=== PATIENT | male | born 1970 ===

== ENCOUNTER 2018-09-26 22:30 | Observation (INO) | payer SELFPAY ==
[2018-09-26] MEDS ORDERED: Aspirin 81 MG Tab.Chew PO ONE (22:32)
[2018-09-26] MEDS ORDERED: Sodium Chloride 0.9% 1,000 ML IV ONE (22:32)
[2018-09-26] MEDS: Nitroglycerin 0.4 MG Tab.SL SL PRN ×3 (22:43→23:06)
[2018-09-26 23:22] LABS: CHLORIDE,CL 103 mmol/L (98-107); SODIUM,NA 141 mmol/L (136-148)
--- NOTE | 2018-09-26 23:31 | EDM.PDOC ---
ED HPI GENERAL MEDICAL PROBLEM - General Chief Complaint: Chest Pain Stated Complaint: PT HAS CHEST PAINS Time Seen by Provider: 09/26/18 23:31 Source of Information: Reports: Patient - History of Present Illness INITIAL COMMENTS - FREE TEXT/NARRATIVE: HISTORY AND PHYSICAL: History of present illness: []Patient with coronary artery bypass 2 years prior presents with chest pain 6 out of 10 nonradiating persistent for couple of hours blood pressure is quite elevated on arrival, Tatian did receive nitroglycerin and aspirin pain improved with nitroglycerin Fever nausea vomiting diarrhea constipation chest pain shortness breath headache dizziness palpitation no bowel or urine symptoms at current Review of systems: As per history of present illness and below otherwise all systems reviewed and negative. Past medical history: As per history of present illness and as reviewed below otherwise noncontributory. Surgical history: As per history of present illness and as reviewed below otherwise noncontributory. Social history: No reported history of drug or alcohol abuse. Family history: As per history of present illness and as reviewed below otherwise noncontributory. Physical exam: HEENT: Atraumatic, normocephalic, pupils reactive, negative for conjunctival pallor or scleral icterus, mucous membranes moist, throat clear, neck supple, nontender, trachea midline. Lungs: Clear to auscultation, breath sounds equal bilaterally, chest nontender. Heart: S1S2, regular, negative for clicks, rubs, or JVD. Abdomen: Soft, nondistended, nontender. Negative for masses or hepatosplenomegaly. Negative for costovertebral tenderness. Pelvis: Stable nontender. Genitourinary: Deferred. Rectal: Deferred. Extremities: Atraumatic, negative for cords or calf pain. Neurovascular unremarkable. Neuro: Awake, alert, oriented. Cranial nerves II through XII unremarkable. Cerebellum unremarkable. Motor and sensory unremarkable throughout. Exam nonfocal. Diagnostics: [CBC CMP cardiac enzymes EKG Chest 1 view ] Therapeutics: [] will saline Aspirin Nitroglycerin 0.4 sublingual 3 Impression: [] acute coronary syndrome Hypertensive emergency Chronic history of baseline Definitive disposition and diagnosis as appropriate pending reevaluation and review of above. Left Chest Pain Score (Numeric/FACES): 1 - Related Data Allergies Allergy/AdvReac Type Severity Reaction Status Date / Time No Known Allergies Allergy Verified 04/03/16 11:44 Home Meds: Home Meds Aspirin 81 mg PO BRK 04/03/16 [History] Levothyroxine 112 mcg PO ACBREAKFAST 04/03/16 [History] Metoprolol Tartrate 12.5 mg PO BID 04/03/16 [History] Pantoprazole [Protonix] 40 mg PO BEDTIME 04/03/16 [History] Past Medical History HEENT History: Reports: None Cardiovascular History: Reports: High Cholesterol Respiratory History: Reports: None Genitourinary History: Reports: None Musculoskeletal History: Reports: None Neurological History: Reports: None Psychiatric History: Reports: None Endocrine/Metabolic History: Reports: Hypoparathyroidism Hematologic History: Reports: None Immunologic History: Reports: None Oncologic (Cancer) History: Reports: None Dermatologic History: Reports: None - Infectious Disease History Infectious Disease History: Reports: None - Past Surgical History Head Surgeries/Procedures: Reports: None Cardiovascular Surgical History: Reports: Coronary Artery Bypass Other Cardiovascular Surgeries/Procedures: 2016 GI Surgical History: Reports: Cholecystectomy Social & Family History - Tobacco Use Smoking Status *Q: Former Smoker Used Tobacco, but Quit: Yes Month/Year Tobacco Last Used: 09/23/2014 - Caffeine Use Caffeine Use: Reports: Coffee - Recreational Drug Use Recreational Drug Use: No ED ROS GENERAL - Review of Systems Review Of Systems: See Below ED EXAM, GENERAL - Physical Exam Exam: See Below Course - Vital Signs Last Recorded V/S: Last Vital Signs Temp 97.6 F 09/26/18 22:40 Pulse 92 09/26/18 23:25 Resp 18 09/26/18 23:25 BP 149/99 H 09/26/18 23:25 Pulse Ox 97 09/26/18 23:25 - Orders/Labs/Meds Orders: Active Orders 24 hr Category Date Time Status EKG Documentation Completion [RC] STAT Care 09/26/18 22:32 Active Chest 1V Frontal [CR] Stat Exams 09/26/18 22:32 Taken UA RFX DEMETRIO AND CULT IF INDIC [URIN] Stat Lab 09/26/18 22:32 Ordered Labs: Laboratory Tests 09/26/18 09/26/18 Range/Units 22:46 22:46 WBC 13.50 H (4.0-11.0) K/uL RBC 5.68 (4.50-5.90) M/uL Hgb 17.6 H (13.0-17.0) g/dL Hct 50.0 (38.0-50.0) % MCV 88.0 (80.0-98.0) fL MCH 31.0 (27.0-32.0) pg MCHC 35.2 (31.0-37.0) g/dL RDW Std Deviation 44.3 (28.0-62.0) fl RDW Coeff of Renea 14 (11.0-15.0) % Plt Count 296 (150-400) K/uL MPV 11.70 (7.40-12.00) fL Neut % (Auto) 46.7 L (48.0-80.0) % Lymph % (Auto) 36.4 (16.0-40.0) % [place] % (Auto) 8.7 (0.0-15.0) % Eos % (Auto) 7.7 H (0.0-7.0) % Baso % (Auto) 0.5 (0.0-1.5) % Neut # (Auto) 6.3 H (1.4-5.7) K/uL Lymph # (Auto) 4.9 H (0.6-2.4) K/uL [place] # (Auto) 1.2 H (0.0-0.8) K/uL Eos # (Auto) 1.0 H (0.0-0.7) K/uL Baso # (Auto) 0.1 (0.0-0.1) K/uL Nucleated RBC % 0.0 /100WBC Nucleated RBCs # 0 K/uL Sodium 141 (136-148) mmol/L Potassium 3.9 (3.5-5.1) mmol/L Chloride 103 (98-107) mmol/L Carbon Dioxide 26.2 (21.0-32.0) mmol/L BUN 19 H (7.0-18.0) mg/dL Creatinine 0.9 (0.8-1.3) mg/dL Est Cr Clr Drug Dosing 109.23 mL/min Estimated GFR (MDRD) > 60.0 ml/min Glucose 142 H (74-106) mg/dL Calcium 10.2 H (8.5-10.1) mg/dL Total Bilirubin 0.6 (0.2-1.0) mg/dL AST 21 (15-37) IU/L ALT 60 (14-63) IU/L Alkaline Phosphatase 104 (46-116) U/L Troponin I < 0.050 (0.000-0.056) ng/mL Total Protein 8.7 H (6.4-8.2) g/dL Albumin 4.4 (3.4-5.0) g/dL Globulin 4.3 H (2.6-4.0) g/dL Albumin/Globulin Ratio 1.0 (0.9-1.6) Lipase 103 (73-393) U/L Meds: Medications Discontinued Medications Generic Name Dose Route Start Last Admin Trade Name Freq PRN Reason Stop Dose Admin Aspirin 324 mg 09/26/18 22:32 09/26/18 22:46 Aspirin PO 09/26/18 22:33 324 mg ONETIME ONE Administration Sodium Chloride 1,000 mls @ 999 mls/hr 09/26/18 22:32 09/26/18 22:43 Normal Saline IV 09/26/18 23:32 999 mls/hr STAT ONE Administration Nitroglycerin 0.4 mg 09/26/18 22:32 09/26/18 23:06 Nitrostat SL 0.4 mg Q5M PRN Administration Chest Pain Departure - Departure Time of Disposition: 23:45 Disposition: Home, Self-Care 01 Condition: Good Clinical Impression: Acute coronary syndrome - Discharge Information Referrals: PCP,None [Primary Care Provider] - Forms: ED Department Discharge - My Orders Last 24 Hours: My Active Orders 09/26/18 22:32 EKG Documentation Completion [RC] STAT Chest 1V Frontal [CR] Stat UA RFX DEMETRIO AND CULT IF INDIC [URIN] Stat - Assessment/Plan Last 24 Hours: My Active Orders 09/26/18 22:32 EKG Documentation Completion [RC] STAT Chest 1V Frontal [CR] Stat UA RFX DEMETRIO AND CULT IF INDIC [URIN] Stat
[2018-09-27] MEDS ORDERED: Sodium Chloride 0.9% 2.5 ML Syringe FLUSH PRN (00:53)
[2018-09-27] MEDS ORDERED: oxyCODONE 5 MG Tab PO PRN (00:53)
[2018-09-27] MEDS ORDERED: Acetaminophen 325 MG Tab PO PRN (00:53)
[2018-09-27] MEDS ORDERED: Sodium Chloride 0.9% 10 ML Syringe FLUSH PRN (00:53)
[2018-09-27] MEDS ORDERED: Nitroglycerin 2% Oint 1 GM UD Packet TOP PRN (00:53)
[2018-09-27 05:46] LABS: CHLORIDE,CL 106 mmol/L (98-107); SODIUM,NA 143 mmol/L (136-148)
--- NOTE | 2018-09-27 07:52 | PCM.HP ---
H&P History of Present Illness - General Date of Service: 09/27/18 Admit Problem/Dx: Admission Diagnosis/Problem Admission Diagnosis/Problem Acute coronary syndrome Source of Information: Patient History Limitations: Reports: No Limitations - History of Present Illness Initial Comments - Free Text/Narative: The patient is a 48-year-old gentleman who presented yesterday to the emergency room with chest pain that started about 11 p.m. The patient has described the pain as sharp, pressure, stabbing and located in the left sternal area. The patient says that the pain does not radiate. Patient says that the pain started spontaneously while he was resting. It was relieved by nitroglycerin. The patient has a history of bypass graft 2 years ago. The patient had a chest x- ray through the emergency department which showed odd configuration of his mediastinum. The patient also says that he has a history of lymphoma. The patient had no other associated symptoms such as dizziness or lightheadedness. No nausea or vomiting. No diaphoresis. Also, patient says that the pain is not similar to his previous episode. Onset of Symptoms: Reports: Sudden Duration of Symptoms: Reports: Hour(s): Location: Reports: Chest. Denies: Radiates to Quality: Reports: Pressure, Stabbing Severity: Moderate Improves with: Reports: Medication, Rest Worsens with: Reports: None Associated Symptoms: Reports: No Other Symptoms Left Chest Pain Score (Numeric/FACES): 1 - Related Data Allergies/Adverse Reactions: Allergies Allergy/AdvReac Type Severity Reaction Status Date / Time No Known Allergies Allergy Verified 04/03/16 11:44 Home Medications: Home Meds Aspirin 81 mg PO BRK 04/03/16 [History] Levothyroxine 112 mcg PO ACBREAKFAST 04/03/16 [History] Metoprolol Tartrate 12.5 mg PO BID 04/03/16 [History] Pantoprazole [Protonix] 40 mg PO BEDTIME 04/03/16 [History] Past Medical History HEENT History: Reports: None Cardiovascular History: Reports: CAD, High Cholesterol, SD, Other (See Below) ( Bypass) Respiratory History: Reports: None Gastrointestinal History: Reports: None Genitourinary History: Reports: None Musculoskeletal History: Reports: None Neurological History: Reports: None Psychiatric History: Reports: None Endocrine/Metabolic History: Reports: Hypothyroidism Hematologic History: Reports: None Immunologic History: Reports: None Oncologic (Cancer) History: Reports: Hodgkin's Lymphoma Dermatologic History: Reports: None - Infectious Disease History Infectious Disease History: Reports: None - Past Surgical History Head Surgeries/Procedures: Reports: None Cardiovascular Surgical History: Reports: Coronary Artery Bypass Other Cardiovascular Surgeries/Procedures: 2014 GI Surgical History: Reports: Cholecystectomy Other GI Surgeries/Procedures: done in [place] 2012 or 2013 Social & Family History - Family History Family Medical History: Noncontributory - Tobacco Use Smoking Status *Q: Former Smoker Years of Tobacco use: 3 Packs/Tins Daily: 1 Used Tobacco, but Quit: Yes Month/Year Tobacco Last Used: 2013 Second Hand Smoke Exposure: No - Caffeine Use Caffeine Use: Reports: Coffee - Recreational Drug Use Recreational Drug Use: No - Living Situation & Occupation Living situation: Reports: , Alone Occupation: Employed H&P Review of Systems - Review of Systems: Review Of Systems: See Below General: Reports: No Symptoms HEENT: Reports: No Symptoms Pulmonary: Reports: No Symptoms Cardiovascular: Reports: Chest Pain Gastrointestinal: Reports: No Symptoms Genitourinary: Reports: No Symptoms Musculoskeletal: Reports: No Symptoms Skin: Reports: No Symptoms Psychiatric: Reports: No Symptoms Neurological: Reports: No Symptoms Hematologic/Lymphatic: Reports: No Symptoms Immunologic: Reports: No Symptoms Exam - Exam Exam: See Below - Vital Signs Vital Signs: Last Vital Signs Temp 36.5 C 09/27/18 05:00 Pulse 93 09/27/18 05:00 Resp 18 09/27/18 05:00 BP 135/87 09/27/18 05:00 Pulse Ox 96 09/27/18 05:00 Weight: 110.314 kg - Exam Quality Assessment: No: Supplemental Oxygen General: Alert, Oriented, Cooperative HEENT: Conjunctiva Clear, EACs Clear, EOMI, Mucosa Moist & [place], Nares Patent, PERRLA Neck: Supple, Trachea Midline, Thyromegaly Lungs: Clear to Auscultation, Normal Respiratory Effort Cardiovascular: Regular Rate, Regular Rhythm GI/Abdominal Exam: Normal Bowel Sounds, Soft, Non-Tender, No Distention (Male) Exam: Deferred Rectal (Males) Exam: Deferred Back Exam: Normal Inspection, Full Range of Motion Extremities: Normal Inspection, Normal Range of Motion, No Pedal Edema Skin: Warm, Dry, Intact Neurological: Cranial Nerves Intact Neuro Extensive - Mental Status: Alert, Oriented x3 Psychiatric: Alert, Normal Affect, Normal Mood - Patient Data Lab Results Last 24 hrs: Laboratory Results - last 24 hr 09/26/18 09/26/18 09/26/18 Range/Units 22:46 22:46 23:50 WBC 13.50 H (4.0-11.0) K/uL RBC 5.68 (4.50-5.90) M/uL Hgb 17.6 H (13.0-17.0) g/dL Hct 50.0 (38.0-50.0) % MCV 88.0 (80.0-98.0) fL MCH 31.0 (27.0-32.0) pg MCHC 35.2 (31.0-37.0) g/dL RDW Std Deviation 44.3 (28.0-62.0) fl RDW Coeff of Renea 14 (11.0-15.0) % Plt Count 296 (150-400) K/uL MPV 11.70 (7.40-12.00) fL Neut % (Auto) 46.7 L (48.0-80.0) % Lymph % (Auto) 36.4 (16.0-40.0) % [place] % (Auto) 8.7 (0.0-15.0) % Eos % (Auto) 7.7 H (0.0-7.0) % Baso % (Auto) 0.5 (0.0-1.5) % Neut # (Auto) 6.3 H (1.4-5.7) K/uL Lymph # (Auto) 4.9 H (0.6-2.4) K/uL [place] # (Auto) 1.2 H (0.0-0.8) K/uL Eos # (Auto) 1.0 H (0.0-0.7) K/uL Baso # (Auto) 0.1 (0.0-0.1) K/uL Nucleated RBC % 0.0 /100WBC Nucleated RBCs # 0 K/uL Sodium 141 (136-148) mmol/L Potassium 3.9 (3.5-5.1) mmol/L Chloride 103 (98-107) mmol/L Carbon Dioxide 26.2 (21.0-32.0) mmol/L BUN 19 H (7.0-18.0) mg/dL Creatinine 0.9 (0.8-1.3) mg/dL Est Cr Clr Drug Dosing 109.23 mL/min Estimated GFR (MDRD) > 60.0 ml/min Glucose 142 H (74-106) mg/dL Calcium 10.2 H (8.5-10.1) mg/dL Total Bilirubin 0.6 (0.2-1.0) mg/dL AST 21 (15-37) IU/L ALT 60 (14-63) IU/L Alkaline Phosphatase 104 (46-116) U/L Troponin I < 0.050 (0.000-0.056) ng/mL Total Protein 8.7 H (6.4-8.2) g/dL Albumin 4.4 (3.4-5.0) g/dL Globulin 4.3 H (2.6-4.0) g/dL Albumin/Globulin Ratio 1.0 (0.9-1.6) Triglycerides (0-200) mg/dL Cholesterol (50-200) mg/dL LDL Cholesterol, Calc (60-180) mg/dL VLDL Cholesterol (5-55) mg/dL HDL Cholesterol (40-60) mg/dL Cholesterol/HDL Ratio (3.3-6.0) Lipase 103 (73-393) U/L Urine Color YELLOW Urine Appearance CLEAR Urine pH 7.0 (5.0-8.0) Ur Specific Range 1.020 (1.001-1.035) Urine Protein NEGATIVE (NEGATIVE) mg/dL Urine Glucose (UA) NEGATIVE (NEGATIVE) mg/dL Urine Ketones NEGATIVE (NEGATIVE) mg/dL Urine Occult Blood NEGATIVE (NEGATIVE) Urine Nitrite NEGATIVE (NEGATIVE) Urine Bilirubin NEGATIVE (NEGATIVE) Urine Urobilinogen 0.2 (<2.0) EU/dL Ur Leukocyte Esterase NEGATIVE (NEGATIVE) 09/27/18 09/27/18 09/27/18 Range/Units 05:23 05:23 05:23 WBC 11.88 H (4.0-11.0) K/uL RBC 5.15 (4.50-5.90) M/uL Hgb 15.9 (13.0-17.0) g/dL Hct 45.7 (38.0-50.0) % MCV 88.7 (80.0-98.0) fL MCH 30.9 (27.0-32.0) pg MCHC 34.8 (31.0-37.0) g/dL RDW Std Deviation 44.6 (28.0-62.0) fl RDW Coeff of Renea 14 (11.0-15.0) % Plt Count 258 (150-400) K/uL MPV 10.50 (7.40-12.00) fL Neut % (Auto) 56.7 (48.0-80.0) % Lymph % (Auto) 30.4 (16.0-40.0) % [place] % (Auto) 7.6 (0.0-15.0) % Eos % (Auto) 5.0 (0.0-7.0) % Baso % (Auto) 0.3 (0.0-1.5) % Neut # (Auto) 6.7 H (1.4-5.7) K/uL Lymph # (Auto) 3.6 H (0.6-2.4) K/uL [place] # (Auto) 0.9 H (0.0-0.8) K/uL Eos # (Auto) 0.6 (0.0-0.7) K/uL Baso # (Auto) 0.0 (0.0-0.1) K/uL Nucleated RBC % 0.0 /100WBC Nucleated RBCs # 0 K/uL Sodium 143 (136-148) mmol/L Potassium 4.3 (3.5-5.1) mmol/L Chloride 106 (98-107) mmol/L Carbon Dioxide 27.5 (21.0-32.0) mmol/L BUN 19 H (7.0-18.0) mg/dL Creatinine 1.0 (0.8-1.3) mg/dL Est Cr Clr Drug Dosing 98.31 mL/min Estimated GFR (MDRD) > 60.0 ml/min Glucose 140 H (74-106) mg/dL Calcium 9.5 (8.5-10.1) mg/dL Total Bilirubin 0.7 (0.2-1.0) mg/dL AST 16 (15-37) IU/L ALT 49 (14-63) IU/L Alkaline Phosphatase 85 (46-116) U/L Troponin I < 0.050 (0.000-0.056) ng/mL Total Protein 7.2 (6.4-8.2) g/dL Albumin 3.6 (3.4-5.0) g/dL Globulin 3.6 (2.6-4.0) g/dL Albumin/Globulin Ratio 1.0 (0.9-1.6) Triglycerides 113 (0-200) mg/dL Cholesterol 182 (50-200) mg/dL LDL Cholesterol, Calc 128 (60-180) mg/dL VLDL Cholesterol 22 (5-55) mg/dL HDL Cholesterol 31 L (40-60) mg/dL Cholesterol/HDL Ratio 5.9 (3.3-6.0) Lipase (73-393) U/L Urine Color Urine Appearance Urine pH (5.0-8.0) Ur Specific Range (1.001-1.035) Urine Protein (NEGATIVE) mg/dL Urine Glucose (UA) (NEGATIVE) mg/dL Urine Ketones (NEGATIVE) mg/dL Urine Occult Blood (NEGATIVE) Urine Nitrite (NEGATIVE) Urine Bilirubin (NEGATIVE) Urine Urobilinogen (<2.0) EU/dL Ur Leukocyte Esterase (NEGATIVE) Result Diagrams: 09/27/18 05:23 09/27/18 05:23 - Problem List (1) Acute coronary syndrome SNOMED Code(s): 663844995 ICD Code: I24.9 - ACUTE ISCHEMIC HEART DISEASE, UNSPECIFIED Status: Acute Priority: High Current Visit: Yes (2) Left renal mass SNOMED Code(s): 782119944 ICD Code: N28.89 - OTHER SPECIFIED DISORDERS OF KIDNEY AND URETER Status: Chronic Priority: High Current Visit: Yes (3) Hypothyroidism SNOMED Code(s): 15977331 ICD Code: E03.9 - HYPOTHYROIDISM, UNSPECIFIED Status: Acute Priority: High Current Visit: Yes Qualifiers: Hypothyroidism type: acquired Qualified Code(s): E03.9 - Hypothyroidism, unspecified (4) CAD (coronary artery disease) of bypass graft SNOMED Code(s): 423941978, 44374892, 961774563, 113608525, 800722608 ICD Code: I25.810 - ATHEROSCLEROSIS OF CABG W/O ANGINA PECTORIS Status: Acute Current Visit: Yes Qualifiers: [place] vs. transplanted heart: [place] heart Associated angina: with stable angina Qualified Code(s): I25.708 - Atherosclerosis of coronary artery bypass graft(s), unspecified, with other forms of angina pectoris (5) Hx of lymphoma, non-Hodgkins SNOMED Code(s): 880688561 ICD Code: Z85.72 - PERSONAL HISTORY OF NON-HODGKIN LYMPHOMAS Status: Chronic Priority: High Current Visit: Yes (6) Chest wall pain SNOMED Code(s): 034666928 ICD Code: R07.89 - OTHER CHEST PAIN Status: Chronic Priority: High Current Visit: Yes Problem List Initiated/Reviewed/Updated: Yes Orders Last 24hrs: Active Orders 24 hr Category Date Time Status Admission Status [Patient Status] [ADT] Stat ADT 09/26/18 23:46 Active Telemetry Monitoring [Cardiac Monitoring] [RC] Q8H Care 09/27/18 00:57 Active Heart Healthy Diet [DIET] Diet 09/27/18 Breakfast Active Chest 1V Frontal [CR] Stat Exams 09/26/18 22:32 Taken TROPONIN I [CHEM] Q6H Lab 09/27/18 10:26 Ordered Acetaminophen [Tylenol] Med 09/27/18 00:53 Active 650 mg PO Q6H PRN Nitroglycerin [Nitro-Bid 2%] Med 09/27/18 00:53 Active 1 gm TOP Q6H PRN Remove Patch Med 09/27/18 01:13 Active 1 ea TRDERM Q6H PRN Sodium Chloride 0.9% [Saline Flush] Med 09/27/18 00:53 Active 10 ml FLUSH ASDIRECTED PRN Sodium Chloride 0.9% [Saline Flush] Med 09/27/18 00:53 Active 2.5 ml FLUSH ASDIRECTED PRN oxyCODONE Med 09/27/18 00:53 Active 5 mg PO Q4H PRN Saline Lock Insert [OM.PC] Routine Oth 09/27/18 00:53 Ordered Medication Orders Acetaminophen (Tylenol) 650 mg PO Q6H PRN PRN Reason: Pain Miscellaneous Information (Remove Patch) 1 ea TRDERM Q6H PRN PRN Reason: WHEN NTG TOP OINT APPLIED Nitroglycerin (Nitro-Bid 2%) 1 gm TOP Q6H PRN PRN Reason: Chest Pain Oxycodone HCl (Oxycodone) 5 mg PO Q4H PRN PRN Reason: Pain (severe 7-10) Sodium Chloride (Saline Flush) 10 ml FLUSH ASDIRECTED PRN PRN Reason: Keep Vein Open Sodium Chloride (Saline Flush) 2.5 ml FLUSH ASDIRECTED PRN PRN Reason: Keep Vein Open Assessment/Plan Comment:: The patient is a 48-year-old gentleman who had been admitted observation secondary to chest pain. Patient has a history of coronary artery disease with bypass surgery. Serial troponins been ordered. Chest x-ray had indicated some abnormalities within the patient's mediastinum and a CT scan of the patient's chest with contrast was obtained. This did not explain the mediastinal abnormalities. However, as an incidental finding the patient was noted to have a necrotic 1.8 cm lesion arising exophytically from the medial left kidney and is considered suspicious for renal cell carcinoma. The patient also has had history of noncompliance with his medications and he has not taken his Synthroid in the more than a month. I have ordered a TSH for this patient. He' ll be kept on telemetry with further testing and blood pressure control. The patient's medications will be adjusted upon discharge and the patient will be referred to urology at a tertiary care center for likely renal cell carcinoma. If the patient's testing is otherwise negative will consider discharge likely later today.
[2018-09-27] MEDS ORDERED: Levothyroxine 112 MCG Tab PO SCH (08:15)
[2018-09-27] MEDS ORDERED: Metoprolol Tartrate 25 MG Tab PO SCH (09:00)
[2018-09-27] MEDS ORDERED: Iopamidol 755 MG/ML 500 ML Multipack Bottle IVPUSH STA (09:17)
[2018-09-27 12:55] VITALS: BP 143/95
--- NOTE | 2018-09-27 13:27 | PCM.DCSUM1 ---
Discharge Summary - Discharge Data Discharge Date: 09/27/18 Discharge Disposition: Home, Self-Care 01 Condition: Fair - Discharge Diagnosis/Problem(s) (1) Acute coronary syndrome SNOMED Code(s): 011158794 ICD Code: I24.9 - ACUTE ISCHEMIC HEART DISEASE, UNSPECIFIED Status: Acute Priority: High Current Visit: Yes (2) Left renal mass SNOMED Code(s): 699533549 ICD Code: N28.89 - OTHER SPECIFIED DISORDERS OF KIDNEY AND URETER Status: Chronic Priority: High Current Visit: Yes (3) Hypothyroidism SNOMED Code(s): 53040179 ICD Code: E03.9 - HYPOTHYROIDISM, UNSPECIFIED Status: Acute Priority: High Current Visit: Yes Qualifiers: Hypothyroidism type: acquired Qualified Code(s): E03.9 - Hypothyroidism, unspecified (4) CAD (coronary artery disease) of bypass graft SNOMED Code(s): 877969454, 12300200, 971850854, 684118416, 743214851 ICD Code: I25.810 - ATHEROSCLEROSIS OF CABG W/O ANGINA PECTORIS Status: Acute Priority: Medium Current Visit: Yes Qualifiers: [place] vs. transplanted heart: [place] heart Associated angina: with stable angina Qualified Code(s): I25.708 - Atherosclerosis of coronary artery bypass graft(s), unspecified, with other forms of angina pectoris (5) Hx of lymphoma, non-Hodgkins SNOMED Code(s): 037902781 ICD Code: Z85.72 - PERSONAL HISTORY OF NON-HODGKIN LYMPHOMAS Status: Chronic Priority: Medium Current Visit: Yes (6) Chest wall pain SNOMED Code(s): 649333703 ICD Code: R07.89 - OTHER CHEST PAIN Status: Chronic Priority: High Current Visit: Yes - Patient Summary/Data Hospital Course: The patient is a 48-year-old gentleman who had been admitted early this morning secondary to chest pain. He was admitted out of concern for his previous history of heart attacks as well as bypass surgery 2 years ago. The patient had 3 sets of troponins taken which were all 3 undetectable. He had remained on telemetry without issues. EKG was not changed. On chest x-ray the patient did show widened mediastinum and with his history of Hodgkin's lymphoma a CT scan with contrast was obtained. This did not show the mediastinal abnormality however, it did show a suspicious, exophytic 1.8 cm mass to the left kidney. The patient has been advised of this mass and he has been referred to urology at a tertiary care center. The patient also has been recommended to follow up with cardiology due to his significant cardiac history. The patient was also noted to be hypertensive as well as hypothyroid and he has been somewhat noncompliant with these medications. I have prescribed the patient's Synthroid at 112 g per day and also metoprolol along with losartan to help control his blood pressure. The losartan prescription is at 50 mg by mouth daily and metoprolol is a 12.5 mg by mouth twice a day. The patient has been tolerating his diet well and he has been recommended to continue with diet as tolerated. He is also been recommended to continue with activity as tolerated. The patient otherwise has been hemodynamically stable and he was discharged from acute hospitalization with the recommendations listed above. - Patient Instructions Diet: Heart Healthy Diet Activity: As Tolerated - Discharge Plan Prescriptions/Med Rec: Levothyroxine 112 mcg PO ACBREAKFAST #30 tablet Losartan [Cozaar] 50 mg PO DAILY #30 tab Metoprolol Tartrate 12.5 mg PO BID #60 tablet Home Medications: Home Meds Aspirin 81 mg PO BRK 04/03/16 [History] Pantoprazole [ProTONIX] 40 mg PO BEDTIME 04/03/16 [History] Levothyroxine 112 mcg PO ACBREAKFAST #30 tablet 09/27/18 [Rx] Losartan [Cozaar] 50 mg PO DAILY #30 tab 09/27/18 [Rx] Metoprolol Tartrate 12.5 mg PO BID #60 tablet 09/27/18 [Rx] Patient Handouts: Levothyroxine tablets, Metoprolol tablets, Chest Wall Pain, [id number] Referrals: Sneha Santamaria MD [Physician] - (Please call Dr. Snatamaria's clinic on Saturday, September 29, 2018 to arrange for 1 month hospital follow-up appointment.) - Discharge Summary/Plan Comment DC Time >30 min.: Yes - General Info Date of Service: 09/27/18 Admission Dx/Problem (Free Text: Admission Diagnosis/Problem Admission Diagnosis/Problem Acute coronary syndrome Functional Status: Reports: Pain Controlled - Review of Systems General: Reports: No Symptoms HEENT: Reports: No Symptoms Pulmonary: Reports: No Symptoms Cardiovascular: Reports: No Symptoms Gastrointestinal: Reports: No Symptoms Genitourinary: Reports: No Symptoms Musculoskeletal: Reports: No Symptoms Skin: Reports: No Symptoms Neurological: Reports: No Symptoms Psychiatric: Reports: No Symptoms - Patient Data Vitals - Most Recent: Last Vital Signs Temp 36.9 C 09/27/18 11:17 Pulse 92 09/27/18 12:37 Resp 16 09/27/18 11:17 BP 143/95 H 09/27/18 12:37 Pulse Ox 96 09/27/18 11:17 Weight - Most Recent: 110.314 kg I&O - Last 24 hours: Intake & Output 09/26/18 09/27/18 09/27/18 22:59 06:59 14:59 Intake Total 450 240 Output Total 480 Balance 450 -240 Lab Results - Last 24 hrs: Laboratory Results - last 24 hr 09/26/18 09/26/18 09/26/18 Range/Units 22:46 22:46 23:50 WBC 13.50 H (4.0-11.0) K/uL RBC 5.68 (4.50-5.90) M/uL Hgb 17.6 H (13.0-17.0) g/dL Hct 50.0 (38.0-50.0) % MCV 88.0 (80.0-98.0) fL MCH 31.0 (27.0-32.0) pg MCHC 35.2 (31.0-37.0) g/dL RDW Std Deviation 44.3 (28.0-62.0) fl RDW Coeff of [place]ene[place] 14 (11.0-15.0) % Plt Count 296 (150-400) K/uL MPV 11.70 (7.40-12.00) fL Neut % (Auto) 46.7 L (48.0-80.0) % Lymph % (Auto) 36.4 (16.0-40.0) % [place] % (Auto) 8.7 (0.0-15.0) % Eos % (Auto) 7.7 H (0.0-7.0) % Baso % (Auto) 0.5 (0.0-1.5) % Neut # (Auto) 6.3 H (1.4-5.7) K/uL Lymph # (Auto) 4.9 H (0.6-2.4) K/uL [place] # (Auto) 1.2 H (0.0-0.8) K/uL Eos # (Auto) 1.0 H (0.0-0.7) K/uL Baso # (Auto) 0.1 (0.0-0.1) K/uL Nucleated RBC % 0.0 /100WBC Nucleated RBCs # 0 K/uL Sodium 141 (136-148) mmol/L Potassium 3.9 (3.5-5.1) mmol/L Chloride 103 (98-107) mmol/L Carbon Dioxide 26.2 (21.0-32.0) mmol/L BUN 19 H (7.0-18.0) mg/dL Creatinine 0.9 (0.8-1.3) mg/dL Est Cr Clr Drug Dosing 109.23 mL/min Estimated GFR (MDRD) > 60.0 ml/min Glucose 142 H (74-106) mg/dL Calcium 10.2 H (8.5-10.1) mg/dL Total Bilirubin 0.6 (0.2-1.0) mg/dL AST 21 (15-37) IU/L ALT 60 (14-63) IU/L Alkaline Phosphatase 104 (46-116) U/L Troponin I < 0.050 (0.000-0.056) ng/mL Total Protein 8.7 H (6.4-8.2) g/dL Albumin 4.4 (3.4-5.0) g/dL Globulin 4.3 H (2.6-4.0) g/dL Albumin/Globulin Ratio 1.0 (0.9-1.6) Triglycerides (0-200) mg/dL Cholesterol (50-200) mg/dL LDL Cholesterol, Calc (60-180) mg/dL VLDL Cholesterol (5-55) mg/dL HDL Cholesterol (40-60) mg/dL Cholesterol/HDL Ratio (3.3-6.0) Lipase 103 (73-393) U/L TSH 3rd Generation (0.36-3.74) uIU/mL Urine Color YELLOW Urine Appearance CLEAR Urine pH 7.0 (5.0-8.0) Ur Specific Reading 1.020 (1.001-1.035) Urine Protein NEGATIVE (NEGATIVE) mg/dL Urine Glucose (UA) NEGATIVE (NEGATIVE) mg/dL Urine Ketones NEGATIVE (NEGATIVE) mg/dL Urine Occult Blood NEGATIVE (NEGATIVE) Urine Nitrite NEGATIVE (NEGATIVE) Urine Bilirubin NEGATIVE (NEGATIVE) Urine Urobilinogen 0.2 (<2.0) EU/dL Ur Leukocyte Esterase NEGATIVE (NEGATIVE) 09/27/18 09/27/18 09/27/18 Range/Units 05:23 05:23 05:23 WBC 11.88 H (4.0-11.0) K/uL RBC 5.15 (4.50-5.90) M/uL Hgb 15.9 (13.0-17.0) g/dL Hct 45.7 (38.0-50.0) % MCV 88.7 (80.0-98.0) fL MCH 30.9 (27.0-32.0) pg MCHC 34.8 (31.0-37.0) g/dL RDW Std Deviation 44.6 (28.0-62.0) fl RDW Coeff of [place] 14 (11.0-15.0) % Plt Count 258 (150-400) K/uL MPV 10.50 (7.40-12.00) fL Neut % (Auto) 56.7 (48.0-80.0) % Lymph % (Auto) 30.4 (16.0-40.0) % [place] % (Auto) 7.6 (0.0-15.0) % Eos % (Auto) 5.0 (0.0-7.0) % Baso % (Auto) 0.3 (0.0-1.5) % Neut # (Auto) 6.7 H (1.4-5.7) K/uL Lymph # (Auto) 3.6 H (0.6-2.4) K/uL [place] # (Auto) 0.9 H (0.0-0.8) K/uL Eos # (Auto) 0.6 (0.0-0.7) K/uL Baso # (Auto) 0.0 (0.0-0.1) K/uL Nucleated RBC % 0.0 /100WBC Nucleated RBCs # 0 K/uL Sodium 143 (136-148) mmol/L Potassium 4.3 (3.5-5.1) mmol/L Chloride 106 (98-107) mmol/L Carbon Dioxide 27.5 (21.0-32.0) mmol/L BUN 19 H (7.0-18.0) mg/dL Creatinine 1.0 (0.8-1.3) mg/dL Est Cr Clr Drug Dosing 98.31 mL/min Estimated GFR (MDRD) > 60.0 ml/min Glucose 140 H (74-106) mg/dL Calcium 9.5 (8.5-10.1) mg/dL Total Bilirubin 0.7 (0.2-1.0) mg/dL AST 16 (15-37) IU/L ALT 49 (14-63) IU/L Alkaline Phosphatase 85 (46-116) U/L Troponin I < 0.050 (0.000-0.056) ng/mL Total Protein 7.2 (6.4-8.2) g/dL Albumin 3.6 (3.4-5.0) g/dL Globulin 3.6 (2.6-4.0) g/dL Albumin/Globulin Ratio 1.0 (0.9-1.6) Triglycerides 113 (0-200) mg/dL Cholesterol 182 (50-200) mg/dL LDL Cholesterol, Calc 128 (60-180) mg/dL VLDL Cholesterol 22 (5-55) mg/dL HDL Cholesterol 31 L (40-60) mg/dL Cholesterol/HDL Ratio 5.9 (3.3-6.0) Lipase (73-393) U/L TSH 3rd Generation (0.36-3.74) uIU/mL Urine Color Urine Appearance Urine pH (5.0-8.0) Ur Specific Reading (1.001-1.035) Urine Protein (NEGATIVE) mg/dL Urine Glucose (UA) (NEGATIVE) mg/dL Urine Ketones (NEGATIVE) mg/dL Urine Occult Blood (NEGATIVE) Urine Nitrite (NEGATIVE) Urine Bilirubin (NEGATIVE) Urine Urobilinogen (<2.0) EU/dL Ur Leukocyte Esterase (NEGATIVE) 09/27/18 09/27/18 Range/Units 05:23 10:47 WBC (4.0-11.0) K/uL RBC (4.50-5.90) M/uL Hgb (13.0-17.0) g/dL Hct (38.0-50.0) % MCV (80.0-98.0) fL MCH (27.0-32.0) pg MCHC (31.0-37.0) g/dL RDW Std Deviation (28.0-62.0) fl RDW Coeff of [place] (11.0-15.0) % Plt Count (150-400) K/uL MPV (7.40-12.00) fL Neut % (Auto) (48.0-80.0) % Lymph % (Auto) (16.0-40.0) % [place] % (Auto) (0.0-15.0) % Eos % (Auto) (0.0-7.0) % Baso % (Auto) (0.0-1.5) % Neut # (Auto) (1.4-5.7) K/uL Lymph # (Auto) (0.6-2.4) K/uL [place] # (Auto) (0.0-0.8) K/uL Eos # (Auto) (0.0-0.7) K/uL Baso # (Auto) (0.0-0.1) K/uL Nucleated RBC % /100WBC Nucleated RBCs # K/uL Sodium (136-148) mmol/L Potassium (3.5-5.1) mmol/L Chloride (98-107) mmol/L Carbon Dioxide (21.0-32.0) mmol/L BUN (7.0-18.0) mg/dL Creatinine (0.8-1.3) mg/dL Est Cr Clr Drug Dosing mL/min Estimated GFR (MDRD) ml/min Glucose (74-106) mg/dL Calcium (8.5-10.1) mg/dL Total Bilirubin (0.2-1.0) mg/dL AST (15-37) IU/L ALT (14-63) IU/L Alkaline Phosphatase (46-116) U/L Troponin I < 0.050 (0.000-0.056) ng/mL Total Protein (6.4-8.2) g/dL Albumin (3.4-5.0) g/dL Globulin (2.6-4.0) g/dL Albumin/Globulin Ratio (0.9-1.6) Triglycerides (0-200) mg/dL Cholesterol (50-200) mg/dL LDL Cholesterol, Calc (60-180) mg/dL VLDL Cholesterol (5-55) mg/dL HDL Cholesterol (40-60) mg/dL Cholesterol/HDL Ratio (3.3-6.0) Lipase (73-393) U/L TSH 3rd Generation 5.55 H (0.36-3.74) uIU/mL Urine Color Urine Appearance Urine pH (5.0-8.0) Ur Specific Reading (1.001-1.035) Urine Protein (NEGATIVE) mg/dL Urine Glucose (UA) (NEGATIVE) mg/dL Urine Ketones (NEGATIVE) mg/dL Urine Occult Blood (NEGATIVE) Urine Nitrite (NEGATIVE) Urine Bilirubin (NEGATIVE) Urine Urobilinogen (<2.0) EU/dL Ur Leukocyte Esterase (NEGATIVE) Med Orders - Current: Current Medications Acetaminophen (Tylenol) 650 mg PO Q6H PRN PRN Reason: Pain Levothyroxine Sodium (Levothyroxine) 112 mcg PO ACBREAKFAST [facility] Last Admin: 09/27/18 09:42 Dose: 112 mcg Metoprolol Tartrate (Lopressor) 12.5 mg PO BID [facility] Last Admin: 09/27/18 09:42 Dose: 12.5 mg Miscellaneous Information (Remove Patch) 1 ea TRDERM Q6H PRN PRN Reason: WHEN NTG TOP OINT APPLIED Nitroglycerin (Nitro-Bid 2%) 1 gm TOP Q6H PRN PRN Reason: Chest Pain Oxycodone HCl (Oxycodone) 5 mg PO Q4H PRN PRN Reason: Pain (severe 7-10) Pantoprazole Sodium (Protonix) 40 mg PO BEDTIME [facility] Sodium Chloride (Saline Flush) 10 ml FLUSH ASDIRECTED PRN PRN Reason: Keep Vein Open Sodium Chloride (Saline Flush) 2.5 ml FLUSH ASDIRECTED PRN PRN Reason: Keep Vein Open Discontinued Medications Aspirin (Aspirin) 324 mg PO ONETIME ONE Stop: 09/26/18 22:33 Last Admin: 09/26/18 22:46 Dose: 324 mg Sodium Chloride (Normal Saline) 1,000 mls @ 999 mls/hr IV STAT ONE Stop: 09/26/18 23:32 Last Admin: 09/26/18 22:43 Dose: 999 mls/hr Iopamidol (Isovue Multipack-370 (76%)) 75 ml IVPUSH ONETIME STA Stop: 09/27/18 09:18 Last Admin: 09/27/18 09:18 Dose: 75 ml Nitroglycerin (Nitrostat) 0.4 mg SL Q5M PRN PRN Reason: Chest Pain Last Admin: 09/26/18 23:06 Dose: 0.4 mg - Exam Quality Assessment: Denies: Supplemental Oxygen General: Reports: Alert, Oriented, Cooperative, No Acute Distress HEENT: Reports: Pupils Equal, Pupils Reactive, EOMI, Mucous Membr. Moist/[place]. Denies: Scleral Icterus Neck: Reports: Supple, Trachea Midline Lungs: Reports: Clear to Auscultation, Normal Respiratory Effort Cardiovascular: Reports: Regular Rate, Regular Rhythm, No Murmurs GI/Abdominal Exam: Normal Bowel Sounds, Soft, Non-Tender, No Distention (Male) Exam: Deferred Rectal (Males) Exam: Deferred Back Exam: Reports: Normal Inspection, Full Range of Motion Extremities: Normal Inspection, No Pedal Edema Skin: Reports: Warm, Dry Neurological: Reports: No New Focal Deficit, Normal Gait Psy/Mental Status: Reports: Alert, Normal Affect, Normal Mood
[2018-09-27] MEDS ORDERED: Pantoprazole 40 MG Tab.CR PO SCH (21:00)
--- NOTE | 2018-09-29 12:17 | CR ---
EXAM DATE: 09/26/18 PATIENT'S AGE: 48 Patient: JANIYA APPLE Facility: [place], [place] Site . Site : 1970 Study: XRay Chest [id number] 11:08:00 PM Ordering Physician: Doctor Ambriz Final Report: INDICATION: Chest pain, fatigue TECHNIQUE: Chest radiograph 1 view COMPARISON: 04/03/2016 FINDINGS: Mediastinum: Previous median sternotomy and coronary artery bypass grafting ( CABG) noted. Convex right mediastinal border and enlargement of the main pulmonary artery are noted without interval change. The heart silhouette is normal in size and morphology. Lung: Both lungs are unremarkable in appearance. No sign of pleural effusion seen. No pneumothorax is identified. Musculoskeletal: Unremarkable for age. IMPRESSION: 1. Convex right mediastinal border and enlargement of the main pulmonary artery are noted without interval change. Assessment with chest CT may be helpful to exclude any underlying adenopathy or mediastinal mass. Dictated by Mendez Ledezma MD @ 09/26/2018 11:27:08 PM Dictated by: Mendez Ledezma MD @ 09/26/2018 23:27:11 (Electronic Signature) Report Signed by Proxy. DENISE
--- NOTE | 2018-09-29 13:18 | CT ---
EXAM DATE: 09/26/18 PATIENT'S AGE: 48 Patient: JANIYA APPLE Facility: [place], [place] Site . Site : 1970 Study: CT Chest W CONT [id number]/5/[id number] 9:21:34 AM Ordering Physician: Jessa Pro Final Report: INDICATION: Chest pain last night. Chest x-ray yesterday showed soft tissue prominence in the left mediastinum and CT was suggested to exclude adenopathy or mediastinal mass. TECHNIQUE: CT chest performed after IV injection of 75 mL of Isovue-370. COMPARISON: Chest x-ray last night and previous CT 04/03/2016. FINDINGS: Cholecystectomy. Moderate diffuse fatty infiltration of liver. Postoperative changes of sternotomy with CABG. Surgical defect in the manubrium is not healed at this point completely. Patchy ill-defined, platelike and hazy opacities in the medial/very mediastinal lungs especially the mid and upper lungs is more prominent and likely inflammatory or postinflammatory. Question as to whether patient has had previous radiation treatment in the chest. Small nodule in the left upper lobe posterior laterally on image 26 is stable. No mediastinal mass or mediastinal adenopathy. Scattered small nonenlarged lymph nodes in the mediastinum bilaterally. Few small to slightly prominent bilateral hilar lymph nodes. Advanced atherosclerotic coronary artery calcification. Indeterminate centrally necrotic exophytic peripherally enhancing lesion has developed in the left upper medial kidney measuring 1.8 cm. Given the lack of optimal enhancement of the left kidney on the prior exam, it is difficult to evaluate whether this it is new or not. Given its peripheral enhancement, findings are very suspicious for renal neoplasm such as a renal cell carcinoma. Recommend urologic consult with further evaluation of this lesion. Increase number of small to mildly prominent lymph nodes in the axillary regions and chest wall bilaterally. Remainder negative. IMPRESSION: 1. No mediastinal mass or adenopathy to account for the chest x-ray findings yesterday. 2. Peripherally enhancing centrally necrotic 1.8 cm lesion arising exophytically from the medial left kidney is suspicious for a renal neoplasm such as renal cell carcinoma. This should be the diagnosis until proven otherwise. Due to technical differences on the prior exam it is difficult to compare this lesion to the prior exam. Recommend urologic consult with further investigation of this lesion. 3. Sternotomy with CABG. Advanced [place] coronary artery disease. 4. Patchy opacities in the paramediastinal medial mid and upper lungs slightly more prominent are likely inflammatory or postinflammatory. Question as to whether patient has had previous radiation treatment in the chest. 5. Small stable left upper lobe nodule nonspecific. Other findings as above. Please note that all CT scans at this facility use dose modulation, iterative reconstruction, and/or weight-based dosing when appropriate to reduce radiation dose to as low as reasonably achievable. Dictated by Orville Pierce MD @ Sep 27 2018 9:58AM (Electronic Signature) Report Signed by Proxy. MTDD
== END 2018-09-27 14:40 | disposition home or self-care (01) ==
LOC: MW.ED 22:30 → MW.ICU 23:46 → MW.ED 09-27 00:04 → MW.ICU 09-27 00:34
PROVIDERS: ADMIT Internal Medicine; ATTEND Internal Medicine
DX: I24.9 Acute ischemic heart disease, unspecified (principal); N28.89 Other specified disorders of kidney and ureter; I25.708 Atherosclerosis of coronary artery bypass graft(s), unspecified, with other forms of angina pectoris; E03.9 Hypothyroidism, unspecified; Z85.72 Personal history of non-Hodgkin lymphomas; Z87.891 Personal history of nicotine dependence; Z79.82 Long term (current) use of aspirin; Z79.899 Other long term (current) drug therapy; Z79.890 Hormone replacement therapy
CPT/HCPCS: 36415; 71045; 71260; 80053; 80061; 81003; 83690; 84443; 84484; 85025; 93005; 96360; 99285; A9270; J7040; Q9967; G0378

== ENCOUNTER 2019-04-28 02:18 | Emergency (ER) | payer BC, MEDICAID ==
--- NOTE | 2019-04-28 02:36 | EDM.PDOC ---
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 He tells nursing and me this is an ongoing for the last 2 months and his last visit in the clinic was a regular visit but he did discuss with them this arm pain. He says that has had this pain for the last 2 months and he took a hydrocodone at 10 PM and he currently rates his pain as a 3/10. The patient tells me that his new provider Dr. Merino, her family practice residents, wanted to do a CAT scan of his arm but they decided to wait and see how he does with symptomatic care. The patient says that the pain has been constant for 2 months but comes and goes in intensity and he has a history of a "bad shoulder" . He says that he has diminished range of motion at his left shoulder regularly and he has had no new injuries trauma or issues with the shoulder itself. He says that the pain is at the lateral aspect of his mid humerus soft tissue area and he feels like there is a lump there. He says the pain shoots downward to his elbow/antecubital area as well as up into the muscle of his upper arm. He does not have any new shoulder elbow forearm wrist or hand pain and no weakness or neurosensory changes in the distal forearm and hand. He says that he has felt this little lump in the soft tissue for quite some time and is not sure if that is what is causing the pain. He has no chest pain no shortness of breath no fevers chills nausea vomiting or abdominal complaints and no other joint or muscle pain/injuries. When queried why he would come to the ED at this time with a two-month history of similar pain he told our tech that "this is the best time to come because it is not busy". Review of systems: As per history of present illness and below otherwise all systems reviewed and negative. Past medical history: As per history of present illness and as reviewed below otherwise noncontributory. Surgical history: As per history of present illness and as reviewed below otherwise noncontributory. Social history: No reported history of drug or alcohol abuse. Family history: As per history of present illness and as reviewed below otherwise noncontributory. Physical exam: General: Well-developed well-nourished man who is nontoxic and vital signs are noted by me HEENT: Atraumatic, normocephalic, negative for conjunctival pallor or scleral icterus, mucous membranes moist, throat clear, neck supple, nontender, trachea midline. Lungs: Clear to auscultation, breath sounds equal bilaterally, chest nontender. Heart: S1S2, regular rate and rhythm no overt murmurs Abdomen: Soft, nondistended, nontender. Negative for masses or hepatosplenomegaly. NABS Pelvis: Deferred Genitourinary: Deferred. Rectal: Deferred. Extremities: Atraumatic, negative for cords or calf pain. Patient has full range of motion of all extremities including the left upper extremity with the exception of the left shoulder where he has diminished abduction and range of motion that is chronic and not new. At the left shoulder there is no trigger point tenderness or fullness and along the soft tissue of the humerus area the compartment is soft and there is no specific erythema warmth or swelling appreciated. There is an ill-defined mobile nodular like area near the deltoid insertion that is appreciated that is not fluctuant red or particularly tender and it seems to be not attached to the underlying muscle or bone. The patient says that this is somewhat uncomfortable when I palpate this area as well as but distal deltoid and mid biceps muscles. There is no bony humerus tenderness defects or deformities noted triceps pain defects or deformities and no distal elbow forearm wrist or hand issues such as tenderness defects or deformities. I cannot completely reproduce the pain with palpation of the biceps or deltoid insertion and the patient can range of motion at the elbow without deficits. Neurovascular unremarkable. Neuro: Awake, alert, oriented. Cranial nerves II through XII unremarkable. Cerebellum unremarkable. Motor and sensory unremarkable throughout. Exam nonfocal. Diagnostics: EKG, patient was offered an x-ray but declines and I concur it would likely not have a high yield as there is been no acute injury Therapeutics: Toradol IM Patient drove himself so I will give him a prescription for Norflex as well as diclofenac and have advised him to try this regimen and if it does not improve he needs to follow-up with his provider in the clinic for further testing. I also told him that if this nodular area appears to bother him or changes in character or size that he should also follow-up and get it reevaluated. Impression: Acute on chronic left soft tissue extremity pain Definitive disposition and diagnosis as appropriate pending reevaluation and review of above. left upper arm Pain Score (Numeric/FACES): 3 - Related Data Allergies Allergy/AdvReac Type Severity Reaction Status Date / Time No Known Allergies Allergy Verified 04/28/19 02:34 Home Meds: Home Meds Aspirin 81 mg PO BRK 04/03/16 [History] Pantoprazole [ProTONIX] 40 mg PO BEDTIME 04/03/16 [History] Levothyroxine 112 mcg PO ACBREAKFAST #30 tablet 09/27/18 [Rx] Losartan [Cozaar] 50 mg PO DAILY #30 tab 09/27/18 [Rx] Metoprolol Tartrate 12.5 mg PO BID #60 tablet 09/27/18 [Rx] Past Medical History HEENT History: Reports: None Cardiovascular History: Reports: CAD, High Cholesterol, [place], Other (See Below) ( Bypass) Respiratory History: Reports: None Gastrointestinal History: Reports: None Genitourinary History: Reports: None Musculoskeletal History: Reports: None Neurological History: Reports: None Psychiatric History: Reports: None Endocrine/Metabolic History: Reports: Hypothyroidism Hematologic History: Reports: None Immunologic History: Reports: None Oncologic (Cancer) History: Reports: Hodgkin's Lymphoma Dermatologic History: Reports: None - Infectious Disease History Infectious Disease History: Reports: None - Past Surgical History Head Surgeries/Procedures: Reports: None Cardiovascular Surgical History: Reports: Coronary Artery Bypass Other Cardiovascular Surgeries/Procedures: 2014 GI Surgical History: Reports: Cholecystectomy Other GI Surgeries/Procedures: done in [place] 2013 or 2013 Social & Family History - Family History Family Medical History: Noncontributory - Caffeine Use Caffeine Use: Reports: Coffee - Living Situation & Occupation Living situation: Reports: , Alone Occupation: Employed Review of Systems - Review of Systems Review Of Systems: ROS reveals no pertinent complaints other than HPI. ED EXAM, GENERAL - Physical Exam Exam: See Below (See dictation) Course - Vital Signs Last Recorded V/S: Last Vital Signs Temp 36.3 C 04/28/19 02:26 Pulse 89 04/28/19 02:26 Resp 17 04/28/19 02:26 BP 142/92 H 04/28/19 02:26 Pulse Ox 96 04/28/19 02:26 - Orders/Labs/Meds Orders: Active Orders 24 hr Category Date Time Status EKG Documentation Completion [RC] STAT Care 04/28/19 02:29 Active Meds: Medications Discontinued Medications Generic Name Dose Route Start Last Admin Trade Name Freq PRN Reason Stop Dose Admin Ketorolac Tromethamine 60 mg 04/28/19 02:46 Toradol IM 04/28/19 02:47 ONETIME ONE Departure - Departure Time of Disposition: 02:53 Disposition: Home, Self-Care 01 Condition: Good Clinical Impression: Upper extremity pain Qualifiers: Laterality: left Qualified Code(s): M79.602 - Pain in left arm - Discharge Information Referrals: PCP,None [Primary Care Provider] - Forms: ED Department Discharge Additional Instructions: The following information is given to patients seen in the emergency department who are being discharged to home. This information is to outline your options for follow-up care. We provide all patients seen in our emergency department with a follow-up referral. The need for follow-up, as well as the timing and circumstances, are variable depending upon the specifics of your emergency department visit. If you don't have a primary care physician on staff, we will provide you with a referral. We always advise you to contact your personal physician following an emergency department visit to inform them of the circumstance of the visit and for follow-up with them and/or the need for any referrals to a consulting specialist. The emergency department will also refer you to a specialist when appropriate. This referral assures that you have the opportunity for followup care with a specialist. All of these measure are taken in an effort to provide you with optimal care, which includes your followup. Under all circumstances we always encourage you to contact your private physician who remains a resource for coordinating your care. When calling for followup care, please make the office aware that this follow-up is from your recent emergency room visit. If for any reason you are refused follow-up, please contact the [facility] emergency department at and ask to speak to the emergency department charge nurse. [facility] Primary care- Internal Medicine and Family [address] [address] Try the new regimen of anti-inflammatories and muscle relaxers and see if the pain improves. Please connect with your provider in the family practice clinic as we discussed for further care and evaluation of this more chronic issue as he may be able to perform more testing that we'll be more appropriate to get to the bottom of your diagnosis. Return to ER as needed as discussed - My Orders Last 24 Hours: My Active Orders 04/28/19 02:29 EKG Documentation Completion [RC] STAT - Assessment/Plan Last 24 Hours: My Active Orders 04/28/19 02:29 EKG Documentation Completion [RC] STAT
[2019-04-28] MEDS ORDERED: Ketorolac 60 MG/2 ML SDV IM ONE (02:46)
[2019-04-28 03:20] VITALS: BP 135/81; PULSE 83
== END 2019-04-28 03:19 | disposition home or self-care (01) ==
LOC: MW.ED 02:18
DX: M79.622 Pain in left upper arm (principal); G89.29 Other chronic pain; I25.2 Old myocardial infarction; E03.9 Hypothyroidism, unspecified; Z79.899 Other long term (current) drug therapy; Z79.82 Long term (current) use of aspirin
CPT/HCPCS: 93005; 96372; 99283; J1885; 99282

== ENCOUNTER 2019-05-22 16:57 | Observation (INO) | payer BC, MEDICAID ==
[2019-05-22] MEDS ORDERED: Aspirin 81 MG Tab.Chew PO ONE (17:04)
[2019-05-22] MEDS ORDERED: Nitroglycerin 0.4 MG Tab.SL SL PRN (17:04)
[2019-05-22] MEDS ORDERED: Sodium Chloride 0.9% 1,000 ML IV SCH (17:15)
[2019-05-22 17:55] LABS: CHLORIDE,CL 104 mmol/L (98-107); SODIUM,NA 143 mmol/L (136-148)
--- NOTE | 2019-05-22 18:21 | CR ---
Indication: Chest pain Technique: Chest 1 view Comparison: September 26, 2018 Findings/Impression: Stable cardiomediastinal silhouette. Status post median sternotomy. Normal pulmonary vasculature. No focal infiltrate, effusion, or pneumothorax. No acute osseous abnormality. Degenerative changes in the left glenohumeral joint. Dictated by Yessica Guzman MD @ May 22 2019 6:19PM Signed by Dr. Yessica Guzman @ May 22 2019 6:19PM
--- NOTE | 2019-05-22 18:34 | EDM.PDOC ---
ED HPI GENERAL MEDICAL PROBLEM - General Chief Complaint: Chest Pain Stated Complaint: CHEST PAIN Time Seen by Provider: 05/22/19 17:13 Source of Information: Reports: Patient History Limitations: Reports: No Limitations - History of Present Illness INITIAL COMMENTS - FREE TEXT/NARRATIVE: HISTORY AND PHYSICAL: History of present illness: Patient is a 49-year-old male who presents to the emergency room today with complaints of chest pain, diaphoresis and dizziness. He states earlier this morning around noon he had some mild left/midsternal chest pain. He states he thought maybe his blood pressure was elevated and therefore took his antihypertensive medications. He states it was not very bothersome that was noticeable. At 5 PM this evening he had a sudden onset of sharp stabbing pain to the left anterior chest and felt dizzy and diaphoretic. By the time he got to the emergency room this had resolved. He is currently asymptomatic and offers no current complaints or concerns. Review of systems: As per history of present illness and below otherwise all systems reviewed and negative. Past medical history: As per history of present illness and as reviewed below otherwise noncontributory. Surgical history: As per history of present illness and as reviewed below otherwise noncontributory. Social history: See social history for further information Family history: As per history of present illness and as reviewed below otherwise noncontributory. Physical exam: General: Well-developed and well-nourished 49-year-old male. Alert and oriented. Nontoxic appearing and in no acute distress. HEENT: Atraumatic, normocephalic, pupils equal and reactive bilaterally, negative for conjunctival pallor or scleral icterus, mucous membranes moist, trachea midline. No drooling or trismus noted. No meningeal signs. No hot potato voice noted. Lungs: Clear to auscultation, breath sounds equal bilaterally, chest nontender. Heart: S1S2, regular rate and rhythm without overt murmur Abdomen: Soft, nondistended, nontender. Negative for masses or hepatosplenomegaly. Negative for costovertebral tenderness. Skin: Intact, warm, dry. No lesions or rashes noted. Extremities: Atraumatic, moves all extremities per self without difficulty or deficits, negative for cords or calf pain. Neurovascular unremarkable. Neuro: Awake, alert, oriented. Cranial nerves II through XII unremarkable. Cerebellum unremarkable. Motor and sensory unremarkable throughout. Exam nonfocal. Notes: Patient remains pain-free. Vital signs have improved during the course of the ER visit. Diagnostics were shared with the patient. He is agreeable to staying for observation admission. Dr Hawley was consulted on this patient for admission. Dr Pham is here to evaluate the patient. Diagnostics: CBC, CMP, Troponin, EKG, CXR Therapeutics: Aspirin, Nitro (held) Impression: Chest pain r/o [place] Plan: Observation admission with telemetry Definitive disposition and diagnosis as appropriate pending reevaluation and review of above. intermittent L chest Pain Score (Numeric/FACES): 8 - Related Data Allergies Allergy/AdvReac Type Severity Reaction Status Date / Time No Known Allergies Allergy Verified 05/22/19 17:07 Home Meds: Home Meds Aspirin 81 mg PO BRK 04/03/16 [History] Levothyroxine 112 mcg PO ACBREAKFAST #30 tablet 09/27/18 [Rx] Hydrocodone/Acetaminophen [Hydrocodon-Acetaminoph 7.5-325] 1 tab PO ASDIRECTED PRN 05/22/19 [History] Lisinopril 1 tab PO DAILY 05/22/19 [History] Losartan Potassium 100 mg PO DAILY 05/22/19 [History] Metoprolol Tartrate 0.5 tab PO BID 05/22/19 [History] Nitroglycerin 1 tab PO ASDIRECTED PRN 05/22/19 [History] Orphenadrine [Norflex] 1 tab PO DAILY 05/22/19 [History] Ranitidine HCl [Ranitidine] 150 mg PO ASDIRECTED PRN 05/22/19 [History] atorvaSTATin Calcium [Atorvastatin Calcium] 40 mg PO DAILY 05/22/19 [History] metFORMIN [Glucophage XR] 2 tab PO DAILY 05/22/19 [History] Past Medical History HEENT History: Reports: None Cardiovascular History: Reports: CAD, High Cholesterol, [place], Other (See Below) Respiratory History: Reports: None Gastrointestinal History: Reports: None Genitourinary History: Reports: None Musculoskeletal History: Reports: None Neurological History: Reports: None Psychiatric History: Reports: None Endocrine/Metabolic History: Reports: Diabetes, Type II, Hypothyroidism Hematologic History: Reports: None Immunologic History: Reports: None Oncologic (Cancer) History: Reports: Hodgkin's Lymphoma Dermatologic History: Reports: None - Infectious Disease History Infectious Disease History: Reports: None - Past Surgical History Head Surgeries/Procedures: Reports: None Cardiovascular Surgical History: Reports: Coronary Artery Bypass Other Cardiovascular Surgeries/Procedures: 2014 GI Surgical History: Reports: Cholecystectomy Other GI Surgeries/Procedures: done in [place] 2012 or 2013 Social & Family History - Family History Family Medical History: Noncontributory - Tobacco Use Smoking Status *Q: Never Smoker - Caffeine Use Caffeine Use: Reports: Coffee - Recreational Drug Use Recreational Drug Use: No - Living Situation & Occupation Living situation: Reports: , Alone Occupation: Employed ED ROS GENERAL - Review of Systems Review Of Systems: ROS reveals no pertinent complaints other than HPI. ED EXAM, GENERAL - Physical Exam Exam: See Below (See dictation) Course - Vital Signs Last Recorded V/S: Last Vital Signs Temp 98.2 F 05/22/19 17:04 Pulse 89 05/22/19 18:15 Resp 17 05/22/19 18:15 BP 114/71 05/22/19 18:15 Pulse Ox 96 05/22/19 18:15 - Orders/Labs/Meds Orders: Active Orders 24 hr Category Date Time Status Admission Status [Patient Status] [ADT] Stat ADT 05/22/19 18:29 Active EKG Documentation Completion [RC] STAT Care 05/22/19 17:01 Active EKG Documentation Completion [RC] STAT Care 05/22/19 18:34 Active Nitroglycerin [Nitrostat] Med 05/22/19 17:04 Active 0.4 mg SL Q5M PRN Sodium Chloride 0.9% [Normal Saline] 1,000 ml Med 05/22/19 17:15 Active IV ASDIRECTED Medication Orders Sodium Chloride (Normal Saline) 1,000 mls @ 125 mls/hr IV ASDIRECTED MILES Last Admin: 05/22/19 17:17 Dose: 125 mls/hr Nitroglycerin (Nitrostat) 0.4 mg SL Q5M PRN PRN Reason: Chest Pain Labs: Laboratory Tests 05/22/19 05/22/19 Range/Units 17:05 17:05 WBC 10.57 (4.0-11.0) K/uL RBC 5.49 (4.50-5.90) M/uL Hgb 16.8 (13.0-17.0) g/dL Hct 48.9 (38.0-50.0) % MCV 89.1 (80.0-98.0) fL MCH 30.6 (27.0-32.0) pg MCHC 34.4 (31.0-37.0) g/dL RDW Std Deviation 45.6 (28.0-62.0) fl RDW Coeff of Renea 14 (11.0-15.0) % Plt Count 291 (150-400) K/uL MPV 10.90 (7.40-12.00) fL Neut % (Auto) 59.8 (48.0-80.0) % Lymph % (Auto) 31.1 (16.0-40.0) % Jennings % (Auto) 6.7 (0.0-15.0) % Eos % (Auto) 2.1 (0.0-7.0) % Baso % (Auto) 0.3 (0.0-1.5) % Neut # (Auto) 6.3 H (1.4-5.7) K/uL Lymph # (Auto) 3.3 H (0.6-2.4) K/uL Jennings # (Auto) 0.7 (0.0-0.8) K/uL Eos # (Auto) 0.2 (0.0-0.7) K/uL Baso # (Auto) 0.0 (0.0-0.1) K/uL Nucleated RBC % 0.0 /100WBC Nucleated RBCs # 0 K/uL Sodium 143 (136-148) mmol/L Potassium 4.0 (3.5-5.1) mmol/L Chloride 104 (98-107) mmol/L Carbon Dioxide 27.2 (21.0-32.0) mmol/L BUN 20 H (7.0-18.0) mg/dL Creatinine 0.9 (0.8-1.3) mg/dL Est Cr Clr Drug Dosing TNP Estimated GFR (MDRD) > 60.0 ml/min Glucose 149 H (74-106) mg/dL Calcium 10.4 H (8.5-10.1) mg/dL Total Bilirubin 1.5 H (0.2-1.0) mg/dL AST 27 (15-37) IU/L ALT 71 H (14-63) IU/L Alkaline Phosphatase 141 H (46-116) U/L Troponin I < 0.050 (0.000-0.056) ng/mL Total Protein 7.8 (6.4-8.2) g/dL Albumin 4.2 (3.4-5.0) g/dL Globulin 3.6 (2.6-4.0) g/dL Albumin/Globulin Ratio 1.2 (0.9-1.6) Meds: Medications Generic Name Dose Route Start Last Admin Trade Name Freq PRN Reason Stop Dose Admin Sodium Chloride 1,000 mls @ 125 mls/hr 05/22/19 17:15 05/22/19 17:17 Normal Saline IV 125 mls/hr ASDIRECTED MILES Administration Nitroglycerin 0.4 mg 05/22/19 17:04 Nitrostat SL Q5M PRN Chest Pain Discontinued Medications Generic Name Dose Route Start Last Admin Trade Name Freq PRN Reason Stop Dose Admin Aspirin 324 mg 05/22/19 17:04 05/22/19 17:17 Aspirin PO 05/22/19 17:05 324 mg ONETIME ONE Administration Departure - Departure Time of Disposition: 18:35 Disposition: Refer to Observation Clinical Impression: Chest pain, rule out acute myocardial infarction Referrals: PCP,Unknown [Primary Care Provider] - Forms: ED Department Discharge - My Orders Last 24 Hours: My Active Orders 05/22/19 17:01 EKG Documentation Completion [RC] STAT 05/22/19 17:04 Nitroglycerin [Nitrostat] 0.4 mg SL Q5M PRN 05/22/19 17:15 Sodium Chloride 0.9% [Normal Saline] 1,000 ml IV ASDIRECTED 05/22/19 18:29 Admission Status [Patient Status] [ADT] Stat 05/22/19 18:34 EKG Documentation Completion [RC] STAT - Assessment/Plan Last 24 Hours: My Active Orders 05/22/19 17:01 EKG Documentation Completion [RC] STAT 05/22/19 17:04 Nitroglycerin [Nitrostat] 0.4 mg SL Q5M PRN 05/22/19 17:15 Sodium Chloride 0.9% [Normal Saline] 1,000 ml IV ASDIRECTED 05/22/19 18:29 Admission Status [Patient Status] [ADT] Stat 05/22/19 18:34 EKG Documentation Completion [RC] STAT
--- NOTE | 2019-05-22 18:49 | PCM.HP.2 ---
H&P History of Present Illness - General Date of Service: 05/22/19 Admit Problem/Dx: Admission Diagnosis/Problem Admission Diagnosis/Problem Chest pain, rule out acute myocardial infarction - History of Present Illness Initial Comments - Free Text/Narative: The patient is a 49 year old male who presented to the ER after having sharp left sided chest pain at home. He developed pain while going to the bathroom. / It lasted 1-2 minutes and resolved on its own and did not radiate. He denied associated SOB, diaphoresis, nausea. He took his BP at home and it was 201/ 150. By the time he arrived at the ER, his pain had completely resolved. He has a past history of CAD, HTN, hyperlipidemia, "borderline DMII", and hypothyroidism. Underwent CABG in 2014. Former smoker. Follows with cardiology in [place], last seen 8 months had stress test then which he reports was normal. In the ER, he was given a dose of aspirin, he did not require any nitro. Lab work did not show leukocytosis, anemia, and troponin was negative. CXR showed no acute cardiopulmonary process. In the ER, initial BP was 191/97 but at time of transfer to the floor it was 114/70. intermittent L chest Pain Score (Numeric/FACES): 8 - Related Data Allergies/Adverse Reactions: Allergies Allergy/AdvReac Type Severity Reaction Status Date / Time No Known Allergies Allergy Verified 05/22/19 17:07 Home Medications: Home Meds Aspirin 81 mg PO BRK 04/03/16 [History] Levothyroxine 112 mcg PO ACBREAKFAST #30 tablet 09/27/18 [Rx] Hydrocodone/Acetaminophen [Hydrocodon-Acetaminoph 7.5-325] 1 tab PO ASDIRECTED PRN 05/22/19 [History] Lisinopril 1 tab PO DAILY 05/22/19 [History] Losartan Potassium 100 mg PO DAILY 05/22/19 [History] Metoprolol Tartrate 0.5 tab PO BID 05/22/19 [History] Nitroglycerin 1 tab PO ASDIRECTED PRN 05/22/19 [History] Orphenadrine [Norflex] 1 tab PO DAILY 05/22/19 [History] Ranitidine HCl [Ranitidine] 150 mg PO ASDIRECTED PRN 05/22/19 [History] atorvaSTATin Calcium [Atorvastatin Calcium] 40 mg PO DAILY 05/22/19 [History] metFORMIN [Glucophage XR] 2 tab PO DAILY 05/22/19 [History] Past Medical History HEENT History: Reports: None Cardiovascular History: Reports: CAD, High Cholesterol, [place], Other (See Below) Respiratory History: Reports: None Gastrointestinal History: Reports: None Genitourinary History: Reports: None Musculoskeletal History: Reports: None Neurological History: Reports: None Psychiatric History: Reports: None Endocrine/Metabolic History: Reports: Diabetes, Type II, Hypothyroidism Hematologic History: Reports: None Immunologic History: Reports: None Oncologic (Cancer) History: Reports: Hodgkin's Lymphoma Dermatologic History: Reports: None - Infectious Disease History Infectious Disease History: Reports: None - Past Surgical History Head Surgeries/Procedures: Reports: None Cardiovascular Surgical History: Reports: Coronary Artery Bypass Other Cardiovascular Surgeries/Procedures: 2014 GI Surgical History: Reports: Cholecystectomy Other GI Surgeries/Procedures: done in [place] 2012 or 2013 Social & Family History - Family History Family Medical History: Noncontributory - Tobacco Use Smoking Status *Q: Never Smoker - Caffeine Use Caffeine Use: Reports: Coffee - Recreational Drug Use Recreational Drug Use: No - Living Situation & Occupation Living situation: Reports: , Alone Occupation: Employed H&P Review of Systems - Review of Systems: Review Of Systems: See Below General: Reports: No Symptoms HEENT: Reports: No Symptoms Pulmonary: Reports: No Symptoms Cardiovascular: Reports: Chest Pain. Denies: Palpitations, Edema Gastrointestinal: Reports: No Symptoms Genitourinary: Reports: No Symptoms Musculoskeletal: Reports: No Symptoms Skin: Reports: No Symptoms Psychiatric: Reports: No Symptoms Neurological: Reports: No Symptoms Hematologic/Lymphatic: Reports: No Symptoms Immunologic: Reports: No Symptoms Exam - Exam Exam: See Below - Vital Signs Vital Signs: Last Vital Signs Temp 98.2 F 05/22/19 17:04 Pulse 89 05/22/19 18:15 Resp 17 05/22/19 18:15 BP 114/71 05/22/19 18:15 Pulse Ox 96 05/22/19 18:15 - Exam General: Alert, Oriented, Cooperative HEENT: Conjunctiva Clear, Mucosa Moist & [place], Posterior Pharynx Clear, Pupils Equal, Pupils Reactive Neck: Supple, Trachea Midline Lungs: Clear to Auscultation, Normal Respiratory Effort Cardiovascular: Regular Rate, Regular Rhythm GI/Abdominal Exam: Normal Bowel Sounds, Soft, Non-Tender, No Distention Extremities: No Pedal Edema Skin: Warm, Dry, Intact Neuro Extensive - Mental Status: Alert, Oriented x3 Psychiatric: Alert, Normal Affect, Normal Mood - Patient Data Lab Results Last 24 hrs: Laboratory Results - last 24 hr 05/22/19 05/22/19 Range/Units 17:05 17:05 WBC 10.57 (4.0-11.0) K/uL RBC 5.49 (4.50-5.90) M/uL Hgb 16.8 (13.0-17.0) g/dL Hct 48.9 (38.0-50.0) % MCV 89.1 (80.0-98.0) fL MCH 30.6 (27.0-32.0) pg MCHC 34.4 (31.0-37.0) g/dL RDW Std Deviation 45.6 (28.0-62.0) fl RDW Coeff of [place]ene[place] 14 (11.0-15.0) % Plt Count 291 (150-400) K/uL MPV 10.90 (7.40-12.00) fL Neut % (Auto) 59.8 (48.0-80.0) % Lymph % (Auto) 31.1 (16.0-40.0) % [place] % (Auto) 6.7 (0.0-15.0) % Eos % (Auto) 2.1 (0.0-7.0) % Baso % (Auto) 0.3 (0.0-1.5) % Neut # (Auto) 6.3 H (1.4-5.7) K/uL Lymph # (Auto) 3.3 H (0.6-2.4) K/uL [place] # (Auto) 0.7 (0.0-0.8) K/uL Eos # (Auto) 0.2 (0.0-0.7) K/uL Baso # (Auto) 0.0 (0.0-0.1) K/uL Nucleated RBC % 0.0 /100WBC Nucleated RBCs # 0 K/uL Sodium 143 (136-148) mmol/L Potassium 4.0 (3.5-5.1) mmol/L Chloride 104 (98-107) mmol/L Carbon Dioxide 27.2 (21.0-32.0) mmol/L BUN 20 H (7.0-18.0) mg/dL Creatinine 0.9 (0.8-1.3) mg/dL Est Cr Clr Drug Dosing TNP Estimated GFR (MDRD) > 60.0 ml/min Glucose 149 H (74-106) mg/dL Calcium 10.4 H (8.5-10.1) mg/dL Total Bilirubin 1.5 H (0.2-1.0) mg/dL AST 27 (15-37) IU/L ALT 71 H (14-63) IU/L Alkaline Phosphatase 141 H (46-116) U/L Troponin I < 0.050 (0.000-0.056) ng/mL Total Protein 7.8 (6.4-8.2) g/dL Albumin 4.2 (3.4-5.0) g/dL Globulin 3.6 (2.6-4.0) g/dL Albumin/Globulin Ratio 1.2 (0.9-1.6) Result Diagrams: 05/22/19 17:05 05/22/19 17:05 Problem List Initiated/Reviewed/Updated: Yes Orders Last 24hrs: Active Orders 24 hr Category Date Time Status Admission Status [Patient Status] [ADT] Stat ADT 05/22/19 18:29 Active EKG Documentation Completion [RC] STAT Care 05/22/19 17:01 Active EKG Documentation Completion [RC] STAT Care 05/22/19 18:34 Active Nitroglycerin [Nitrostat] Med 05/22/19 17:04 Active 0.4 mg SL Q5M PRN Sodium Chloride 0.9% [Normal Saline] 1,000 ml Med 05/22/19 17:15 Active IV ASDIRECTED Medication Orders Sodium Chloride (Normal Saline) 1,000 mls @ 125 mls/hr IV ASDIRECTED MILES Last Admin: 05/22/19 17:17 Dose: 125 mls/hr Nitroglycerin (Nitrostat) 0.4 mg SL Q5M PRN PRN Reason: Chest Pain Assessment/Plan Comment:: 1. Admit for observation 2. Code status- full 3. Vitals per ouritne 4. I/Os per routine 5. Diet- heart healthy 6. DVT prophylaxis with lovenox 7. Chest pain- ACS r/o- will trended troponins, monitor on telemetry 8. Chronic conditions- CAD, HTN, hyperlipidemia, hypothyroidism, chronic pain, and DMII- continue home meds, hold metformin, accuchecks and sliding scale insulin.
[2019-05-22] MEDS ORDERED: Enoxaparin 40 MG/0.4 ML Syringe SUBCUT SCH (19:00)
[2019-05-22] MEDS ORDERED: Acetaminophen/HYDROcodone 325-7.5 MG Tab PO PRN (19:05)
[2019-05-22] MEDS ORDERED: Non-Formulary Medication 1 Each (Ranitidine Hcl 150 MG) PO PRN (19:05)
[2019-05-22] MEDS: Metoprolol Tartrate 25 MG Tab PO SCH (20:22)
[2019-05-23 06:58] LABS: CHLORIDE,CL 108 mmol/L (98-107); SODIUM,NA 145 mmol/L (136-148)
[2019-05-23] MEDS ORDERED: Insulin Aspart 100 Units/ML 3 ML Pen SUBCUT SCH (07:30)
[2019-05-23] MEDS ORDERED: Levothyroxine 112 MCG Tab PO SCH (07:30)
[2019-05-23 07:54] VITALS: BP 137/84
[2019-05-23] MEDS ORDERED: Aspirin 81 MG Tab.Chew PO SCH (08:00)
[2019-05-23] MEDS: Metoprolol Tartrate 25 MG Tab PO SCH (08:17)
[2019-05-23] MEDS ORDERED: ORPHENADRINE PO SCH (09:00)
[2019-05-23] MEDS ORDERED: LOSARTAN POTASSIUM 100 MG PO SCH (09:00)
[2019-05-23] MEDS ORDERED: atorvaSTATin 40 MG Tab PO SCH (09:00)
[2019-05-23] MEDS ORDERED: LISINOPRIL PO SCH (09:00)
--- NOTE | 2019-05-23 11:32 | PCM.DCSUM1 ---
Discharge Summary - Discharge Data Discharge Date: 05/23/19 Discharge Disposition: Home, Self-Care 01 Condition: Fair - Patient Summary/Data Hospital Course: The patient is a 49 year old male who was admitted for chest pain. HE presented to the ER after having sharp left sided chest pain at home. He has had this pain for four years but it was particular severe today. It lasted 1-2 minutes and resolved on its own and did not radiate. He ruled out for acute coronary with EKG and serial negative cardiac enzymes. Chest x-ray showed no acute disease. He was monitored overnight with no events on telemetry. He is being discharged today and is to follow up with the [facility]. - Patient Instructions Diet: Usual Diet as Tolerated Activity: As Tolerated - Discharge Plan Home Medications: Home Meds Aspirin 81 mg PO BRK 04/03/16 [History] Levothyroxine 112 mcg PO ACBREAKFAST #30 tablet 09/27/18 [Rx] Hydrocodone/Acetaminophen [Hydrocodon-Acetaminoph 7.5-325] 1 tab PO ASDIRECTED PRN 05/22/19 [History] Lisinopril 1 tab PO DAILY 05/22/19 [History] Losartan Potassium 100 mg PO DAILY 05/22/19 [History] Metoprolol Tartrate 0.5 tab PO BID 05/22/19 [History] Nitroglycerin 1 tab PO ASDIRECTED PRN 05/22/19 [History] Orphenadrine [Norflex] 1 tab PO DAILY 05/22/19 [History] Ranitidine HCl [Ranitidine] 150 mg PO ASDIRECTED PRN 05/22/19 [History] atorvaSTATin Calcium [Atorvastatin Calcium] 40 mg PO DAILY 05/22/19 [History] metFORMIN [Glucophage XR] 2 tab PO DAILY 05/22/19 [History] Patient Handouts: Nonspecific Chest Pain, [id number] Referrals: PCP,Unknown [Ordering Only Provider] - - Discharge Summary/Plan Comment DC Time >30 min.: No - Patient Data Vitals - Most Recent: Last Vital Signs Temp 36.6 C 05/23/19 07:53 Pulse 83 05/23/19 08:17 Resp 17 05/23/19 07:53 BP 137/84 05/23/19 08:17 Pulse Ox 95 05/23/19 07:53 Weight - Most Recent: 106.322 kg I&O - Last 24 hours: Intake & Output 05/22/19 05/23/19 05/23/19 22:59 06:59 14:59 Intake Total 500 Output Total 0 Balance 500 Lab Results - Last 24 hrs: Laboratory Results - last 24 hr 05/22/19 05/22/19 05/22/19 Range/Units 17:05 17:05 22:55 WBC 10.57 (4.0-11.0) K/uL RBC 5.49 (4.50-5.90) M/uL Hgb 16.8 (13.0-17.0) g/dL Hct 48.9 (38.0-50.0) % MCV 89.1 (80.0-98.0) fL MCH 30.6 (27.0-32.0) pg MCHC 34.4 (31.0-37.0) g/dL RDW Std Deviation 45.6 (28.0-62.0) fl RDW Coeff of [place]ene[place] 14 (11.0-15.0) % Plt Count 291 (150-400) K/uL MPV 10.90 (7.40-12.00) fL Neut % (Auto) 59.8 (48.0-80.0) % Lymph % (Auto) 31.1 (16.0-40.0) % [place] % (Auto) 6.7 (0.0-15.0) % Eos % (Auto) 2.1 (0.0-7.0) % Baso % (Auto) 0.3 (0.0-1.5) % Neut # (Auto) 6.3 H (1.4-5.7) K/uL Lymph # (Auto) 3.3 H (0.6-2.4) K/uL [place] # (Auto) 0.7 (0.0-0.8) K/uL Eos # (Auto) 0.2 (0.0-0.7) K/uL Baso # (Auto) 0.0 (0.0-0.1) K/uL Nucleated RBC % 0.0 /100WBC Nucleated RBCs # 0 K/uL Sodium 143 (136-148) mmol/L Potassium 4.0 (3.5-5.1) mmol/L Chloride 104 (98-107) mmol/L Carbon Dioxide 27.2 (21.0-32.0) mmol/L BUN 20 H (7.0-18.0) mg/dL Creatinine 0.9 (0.8-1.3) mg/dL Est Cr Clr Drug Dosing TNP Estimated GFR (MDRD) > 60.0 ml/min Glucose 149 H (74-106) mg/dL Calcium 10.4 H (8.5-10.1) mg/dL Total Bilirubin 1.5 H (0.2-1.0) mg/dL AST 27 (15-37) IU/L ALT 71 H (14-63) IU/L Alkaline Phosphatase 141 H (46-116) U/L Troponin I < 0.050 < 0.050 (0.000-0.056) ng/mL Total Protein 7.8 (6.4-8.2) g/dL Albumin 4.2 (3.4-5.0) g/dL Globulin 3.6 (2.6-4.0) g/dL Albumin/Globulin Ratio 1.2 (0.9-1.6) 05/23/19 05/23/19 Range/Units 05:30 05:30 WBC 9.49 (4.0-11.0) K/uL RBC 4.90 (4.50-5.90) M/uL Hgb 14.9 (13.0-17.0) g/dL Hct 44.0 (38.0-50.0) % MCV 89.8 (80.0-98.0) fL MCH 30.4 (27.0-32.0) pg MCHC 33.9 (31.0-37.0) g/dL RDW Std Deviation 46.1 (28.0-62.0) fl RDW Coeff of [place]ene[place] 14 (11.0-15.0) % Plt Count 264 (150-400) K/uL MPV 11.50 (7.40-12.00) fL Neut % (Auto) 49.8 (48.0-80.0) % Lymph % (Auto) 34.1 (16.0-40.0) % [place] % (Auto) 11.1 (0.0-15.0) % Eos % (Auto) 4.6 (0.0-7.0) % Baso % (Auto) 0.4 (0.0-1.5) % Neut # (Auto) 4.7 (1.4-5.7) K/uL Lymph # (Auto) 3.2 H (0.6-2.4) K/uL [place] # (Auto) 1.1 H (0.0-0.8) K/uL Eos # (Auto) 0.4 (0.0-0.7) K/uL Baso # (Auto) 0.0 (0.0-0.1) K/uL Nucleated RBC % 0.0 /100WBC Nucleated RBCs # 0 K/uL Sodium 145 (136-148) mmol/L Potassium 4.3 (3.5-5.1) mmol/L Chloride 108 H (98-107) mmol/L Carbon Dioxide 27.9 (21.0-32.0) mmol/L BUN 20 H (7.0-18.0) mg/dL Creatinine 0.9 (0.8-1.3) mg/dL Est Cr Clr Drug Dosing 108.07 Estimated GFR (MDRD) > 60.0 ml/min Glucose 118 H (74-106) mg/dL Calcium 9.4 (8.5-10.1) mg/dL Total Bilirubin 0.8 (0.2-1.0) mg/dL AST 22 (15-37) IU/L ALT 60 (14-63) IU/L Alkaline Phosphatase 114 (46-116) U/L Troponin I < 0.050 (0.000-0.056) ng/mL Total Protein 6.5 (6.4-8.2) g/dL Albumin 3.5 (3.4-5.0) g/dL Globulin 3.0 (2.6-4.0) g/dL Albumin/Globulin Ratio 1.2 (0.9-1.6) Med Orders - Current: Current Medications Hydrocodone Bitart/Acetaminophen ([place] 325-7.5 Mg) 1 tab PO ASDIRECTED PRN PRN Reason: Pain Aspirin (Aspirin) 81 mg PO BRK [facility] Last Admin: 05/23/19 08:17 Dose: 81 mg Atorvastatin Calcium (Lipitor) 40 mg PO DAILY [facility] Last Admin: 05/23/19 08:16 Dose: 40 mg Enoxaparin Sodium (Lovenox) 40 mg SUBCUT Q24H [facility] Last Admin: 05/22/19 19:12 Dose: 40 mg Sodium Chloride (Normal Saline) 1,000 mls @ 125 mls/hr IV ASDIRECTED [facility] Last Admin: 05/22/19 17:17 Dose: 125 mls/hr Insulin Aspart (Novolog) 0 unit SUBCUT TIDAC [facility]; Protocol Last Admin: 05/23/19 06:29 Dose: Not Given Levothyroxine Sodium (Levothyroxine) 112 mcg PO ACBREAKFAST [facility] Last Admin: 05/23/19 06:29 Dose: 112 mcg Metoprolol Tartrate (Lopressor) 12.5 mg PO BID [facility] Last Admin: 05/23/19 08:17 Dose: 12.5 mg Nitroglycerin (Nitrostat) 0.4 mg SL Q5M PRN PRN Reason: Chest Pain Non-Formulary Medication (Lisinopril) 1 tab PO DAILY [facility] Last Admin: 05/23/19 10:58 Dose: Not Given Non-Formulary Medication (Losartan Potassium) 100 mg PO DAILY [facility] Last Admin: 05/23/19 10:59 Dose: Not Given Non-Formulary Medication (Orphenadrine) 1 tab PO DAILY [facility] Last Admin: 05/23/19 10:59 Dose: Not Given Non-Formulary Medication (Ranitidine Hcl) 150 mg PO ASDIRECTED PRN PRN Reason: Heartburn Discontinued Medications Aspirin (Aspirin) 324 mg PO ONETIME ONE Stop: 05/22/19 17:05 Last Admin: 05/22/19 17:17 Dose: 324 mg
== END 2019-05-23 12:17 | disposition home or self-care (01) ==
LOC: MW.ED 16:57 → MW.MS 18:29
PROVIDERS: ADMIT Internal Medicine; ATTEND Internal Medicine
DX: R07.9 Chest pain, unspecified (principal); I25.10 Atherosclerotic heart disease of native coronary artery without angina pectoris; I10 Essential (primary) hypertension; I25.2 Old myocardial infarction; E78.5 Hyperlipidemia, unspecified; E03.9 Hypothyroidism, unspecified; E11.9 Type 2 diabetes mellitus without complications; G89.29 Other chronic pain; Z79.82 Long term (current) use of aspirin; Z79.899 Other long term (current) drug therapy; Z79.84 Long term (current) use of oral hypoglycemic drugs; Z95.1 Presence of aortocoronary bypass graft; Z87.891 Personal history of nicotine dependence
CPT/HCPCS: 36415; 71045; 80053; 84484; 85025; 93005; 96360; 96361; 96372; 99285; A9270; J1650; J7040; G0378